=== PATIENT | female | born 1955 | race Caucasian/White ===

== ENCOUNTER 2017-01-15 09:14 | Day surgery (SDC) | payer MEDICARE ==
--- NOTE | ~2017-01-15 | EGD ---
EGD REPORT [facility] [address] [address] NAME: CECILIA DIEGO : [birth year] STATUS : REG [facility]#: [id number] AGE: 61 ADM/REG DATE : 01/15/17 MR#: [id number] REPORT SERV DATE: 01/15/17 DICTATED BY: YODIT BARCLAY DATE: 01/15/17 REPORT STATUS : Draft TRANSCRIBED BY: [facility] DATE: 01/15/17 Pulmonology Patient Name: Cecilia Diego Procedure Date: 01/15/2017 12:28 PM Date of : 1955 Attending MD: FELY BARCLAY MD Procedure Date No Time: 01/15/2017 Procedure: EBUS/CARL BRONCHOSCOPY Indications: ED lung nodule Providers: FELY BARCLAY MD Referring MD: JIMMY CHAVEZ Medicines: Lidocaine 2% 20 mL Complications: No immediate complications Procedure: After obtaining informed consent, the BF [id number] [id number] was introduced through the mouth, via the endotracheal tube (the patient was intubated for the procedure) and advanced to the tracheobronchial tree. The procedure was accomplished without difficulty. The patient tolerated the procedure well. Pre-Anesthesia Assessment: - ASA Grade Assessment: III - A patient with severe systemic disease. - A History and Physical has been performed. Patient meds and allergies have been reviewed. The risks and benefits of the procedure and the sedation options and risks were discussed with the patient. All questions were answered and informed consent was obtained. Patient identification and proposed procedure were verified prior to the procedure by the physician and the nurse in the pre-procedure area in the procedure room. Mental Status Examination: normal. Airway Examination: normal oropharyngeal airway. Respiratory Examination: clear to auscultation. CV Examination: normal and RRR, no murmurs, no S3 or S4. ASA Grade Assessment: IV - A patient with severe systemic disease that is a constant threat to life. After reviewing the risks and benefits, the patient was deemed in satisfactory condition to undergo the procedure. The anesthesia plan was to use general anesthesia. Immediately prior to administration of medications, the patient was re-assessed for adequacy to receive sedatives. The heart rate, respiratory rate, oxygen saturations, blood pressure, adequacy of pulmonary ventilation, and response to care were monitored throughout the procedure. The physical status of the patient was re-assessed after the procedure. After obtaining informed consent, the [id number] EGD REPORT [address] [address] NAME: CECILIA DIEGO : [birth year] STATUS : REG [facility] PAT#: [id number] AGE: 61 ADM/REG DATE : 01/15/17 MR#: [id number] REPORT SERV DATE: 01/15/17 DICTATED BY: YODIT BARCLAY DATE: 01/15/17 REPORT STATUS : Draft TRANSCRIBED BY: [facility] DATE: 01/15/17 was introduced through the mouth, via the endotracheal tube (the patient was intubated for the procedure) and advanced to the tracheobronchial tree. The Bronchoscope was introduced through the mouth, via the endotracheal tube (the patient was intubated for the procedure) and advanced to the tracheobronchial tree. The procedure was accomplished without difficulty. The patient tolerated the procedure well. Findings: The endotracheal tube is in good position. The visualized portion of the trachea is of normal caliber. The cathleen is sharp. The tracheobronchial tree was examined to at least the first subsegmental level. Abnormal LMS lesion was noted and endobronchial biopsy was performed. EBUS TBNA of lymph node level 11R x 8 passes for cytology EBUS TBNA of lymph node level 7 x 4 passes for cytology EBUS TBNA of lymph node level 11L x 4 passes for cytology Using SuperDimension Edge catheter 180, peripheral probe EBUS 17s, and fluoroscopy, I performed the following biopsies: ED lung nodule transbronchial needle aspirates x 6 passes for cytology ED lung nodule transbronchial brush biopsies x 2 passes for cytology ED lung nodule transbronchial forcep biopsies x 8 passes for histopathology Bronchoalveolar lavage was performed in the left upper lobe of the lung and sent for routine cytology. 120 mL of fluid were instilled. 20 mL were returned. The return was blood-tinged and cellular. Impression: Rapid On-Site Evaluation (ODALYS): Preliminary cytology is suggestive of "ATYPICAL CELLS " (final results are pending). A small LMS endobronchial lesion was biopsied. Recommendation: - Await test results. - Chest X-ray. - Follow up with referring physician. - Follow up in clinic. Attending Participation: I personally performed the entire procedure. FELY BARCLAY MD 01/15/2017 1:02 PM This report has been signed electronically. Number of Addenda: 0 Note Initiated On: 01/15/2017 12:28 PM [address] [id number]
--- NOTE | ~2017-01-15 | CN ---
Consultation Report [facility] [address] [place]. [address] NAME: CECILIA DIEGO : [birth year] STATUS : REG [facility]#: [id number] AGE: 61 ADM/REG DATE : 01/15/17 MR#: [id number] REPORT SERV DATE: 01/16/17 DICTATED BY: MAL MAC DATE: 01/15/17 REPORT STATUS : Draft TRANSCRIBED BY: MODL DATE: 01/15/17 CONSULTATION DATE OF CONSULTATION: 01/15/[address] Sauceda and Nicolas De Los Santos, nurse practitioner. Thank you for requesting my opinion regarding evaluation and management of Ms. Cecilia Diego's mediastinal lymphadenopathy. Ms. 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 She underwent a restaging PET-CT scan on 12/25/2016 that demonstrated a focal hypermetabolic nodule and the suprahilar lesion of the left chest measuring 1.8 cm and with a maximum SUV of 3.3. She had received prior radiation to the left lung and hilar area by Dr. Griffin in 2004. She underwent chemotherapy at that time by Dr. Rivera. PET-CT scan post treatment did not show any uptake in this area. Because of these new findings, she was sent to Dr. Sauceda. Dr. Sauceda evaluated the PET-CT scan and requested EBUS and navigation bronchoscopy, which is reasonable given the PET-CT findings. The patient states that she has typical exertional shortness of breath, well localized to the chest, nonradiating with no significant alleviating or exacerbating factors. REVIEW OF SYSTEMS: A detailed 14-point review of systems was completed. Pertinent positives and negatives are listed above. PAST MEDICAL HISTORY: 1. Anemia. 2. Coronary artery disease. 3. Stage III colon cancer. The patient underwent a recent colonoscopy in [place] by Dr. Salcedo and may have reported recurrence? 4. COPD. 5. Diabetes, type 2. 6. Fibromyalgia. 7. Hepatic steatosis. 8. History of tobacco abuse, quit smoking in 2012. 9. Hypertension. 10.Hyperlipidemia. 11.Non-small cell lung cancer, stage IV. 12.Rheumatoid arthritis. 13.Rectal bleeding. 14.Prior cardiac stents. Consultation Report [place] [address] [place]. [address] NAME: CECILIA DIEGO : [birth year] STATUS : REG [facility] PAT#: [id number] AGE: 61 ADM/REG DATE : 01/15/17 MR#: [id number] REPORT SERV DATE: 01/16/17 DICTATED BY: MAL MAC DATE: 01/15/17 REPORT STATUS : Draft TRANSCRIBED BY: FILOMENA DATE: 01/15/17 FAMILY HISTORY: COPD, neck cancer, fibromyalgia, arthritis, cardiovascular disease, COPD. SOCIAL HISTORY: The patient smoked 40 cigarettes per day for many years and quit in 2012. She had a history of alcohol use, but no current use. She quit drinking in 2015. She denies any significant illicit drug abuse. ALLERGIES: CLOPIDOGREL, LATEX. LATEX ALLERGY IS RASH. HOME MEDICATIONS: Reviewed and located in the paper chart. The patient's Effient has been held. PHYSICAL EXAMINATION: VITAL SIGNS: Reviewed and located in the paper chart. GENERAL: In acute distress. Able to communicate in full paragraphs at the time. HEENT: Normocephalic and atraumatic. Pupils are equal, round, and reactive to light and accommodation. Posterior oropharynx is clear. NECK: No JVD. No LAD. Trachea midline. CARDIOVASCULAR: Regular rate and rhythm. S1 and S2 present. LUNGS: Clear to auscultation bilaterally. ABDOMEN: Nontender, nondistended. Soft. Positive bowel sounds. EXTREMITIES: No clubbing, cyanosis, or edema. SKIN: No new rashes, lesions, or ulcers. PSYCHIATRIC: Alert and oriented x3. Appropriate mood and affect. Appropriate insight and judgment. NEUROLOGIC: 5/5 strength in upper and lower extremities. Cranial nerves 2 through 12 intact. Gait not tested. DTRs not performed. IMAGING PROCEDURE: 1. PET-CT scan performed at [facility], new focal hypermetabolic nodular density in the suprahilar lesion of the left chest in this patient, may represent recurrent tumor. 2. Radiation pneumonitis changes in the left chest and left hilar region, similar appearance radiation pneumonitis changes in the previous exam. 3. Remaining lung neff and mediastinum has been PET negative. 4. Physiologic inflammation and changes in the posterior nasopharynx and posterior oropharyngeal soft tissues less prominent than on previous exam. 5. PET negative, abdomen and pelvis. 6. Adrenal glands remain PET negative. 7. Probable physiologic bowel activity. 8. Physiologic changes as discussed. ASSESSMENT AND PLAN: Ms. Cecilia Diego is an extremely pleasant 61-year-old female with a significant past medical history of stage IV squamous cell lung cancer and colon cancer, who recently underwent a colonoscopy by Dr. Salcedo, and may have recurrence. The patient had Consultation Report [address] [address] NAME: CECILIA DIEGO : [birth year] STATUS : REG [facility] [place] PAT#: [id number] AGE: 61 ADM/REG DATE : 01/15/17 MR#: [id number] REPORT SERV DATE: 01/16/17 DICTATED BY: MAL MAC DATE: 01/15/17 REPORT STATUS : Draft TRANSCRIBED BY: MODL DATE: 01/15/17 a staging PET-CT scan that demonstrated new focal hypermetabolic nodular density in the suprahilar region of the left chest, which may represent recurrent tumor. The patient has been referred by Dr. Sauceda and Nicolas De Los Santos for evaluation for EBUS and navigation bronchoscopy. The clinical and radiographic presentation is most consistent with either radiation or inflammatory changes or recurrence of lung primary or less likely metastatic disease from colon cancer. We discussed in detail potential alternative options including CT-guided needle biopsy, thoracic surgical biopsy, and EBUS and navigation bronchoscopy. The patient is aware that the procedure risks including lung collapse, respiratory failure, life-threatening bleeding, and even . RECOMMENDATIONS: A summary of my recommendations are as follows: 1. Proceed with EBUS and navigation bronchoscopy. 2. Follow up with Dr. Sauceda. Thank you for allowing me to participate in Ms. Diego's care. Sincerely, SOFY/FILOMENA Mal Mac M.D. / [id number] CC: Mal Mac M.D. Kathleen Grey
[~2017-01-15 09:14] MED LIST: ADVAIR250 INH; ASA5GR PO; COMBIVENT INH; COREG25 PO; EFFIENT10 PO; FESO4 PO; FOLIC PO; K-TABS10 MEQ PO; KOMBIGLYZE XR1 EAC2 PO; LOP50 PO; LOPID6 PO; LOTE10 PO; MEVACOR40 MG PO; NEUR600 PO; NOR10 PO; ONGLYZA5 MG PO; PROTONIX PO; TICLID 250 MG250 MG PO; ULTRAM50 PO; VENTOLIN HFA INH; ZETIA PO; ZOCOR20 PO; [UNRECOGNIZED DRUG - CODE] IM
[2017-01-15 09:49] LABS: BASOPHILS 0.3 %; BASOPHILS ABSOLUTE 0.02 10/3/uL (0.0-0.16); EOSINOPHILS 1.7 %; IMMATURE GRANULOCYTES 0.2 %; IMMATURE GRANULOCYTES ABSOLUTE 0.01 10/3/uL (0.0-0.11); LYMPHOCYTES 29.2 %; LYMPHOCYTES ABSOLUTE 1.67 10/3/uL (0.67-4.30); MEAN PLATELET VOLUME 8.8 fL (9.2-13.0); MONOCYTES 6.6 %; MONOCYTES ABSOLUTE 0.38 10/3/uL (0.21-1.20); NEUTROPHILS ABSOLUTE 3.54 10/3/uL (2.02-8.40); WHITE BLOOD CELLS 5.7 10/3/uL (4.5-10.5)
[2017-01-15 09:51] LABS: HEMATOCRIT 36.6 % (36.0-48.0); HEMOGLOBIN 12.5 g/dL (12.0-16.0); MANUAL DIFF NO %; MEAN CORPUS HGB CONC 34.2 g/dL (32.0-36.0); MEAN CORPUSCULAR HEMOGLOB 33.7 pg (26.0-34.0); MEAN CORPUSCULAR VOLUME 98.7 fL (80-100); PLATELET COUNT 180 10/3/uL (150-400); RBC DISTRIBUTION WIDTH 13.1 % (12.0-16.0); RED CELL COUNT 3.71 10/6/uL (4.0-5.6)
[2017-01-15 09:56] LABS: INTERNATIONAL NORMAL RATI 1.3 UNITS (-); PARTIAL THROMBO TIME 30.2 SEC (22.5-37.2); PROTIME (NOT ORD) 16.5 SEC (12.0-14.5)
[2017-01-15 10:01] LABS: BUN (BLOOD UREA NITROGEN) 12 MG/DL (6-23); CHLORIDE, SERUM 104 MMOL/L (96-112); CREATININE 0.82 MG/DL (0.55-1.02); GFR AFRICAN AMERICAN 91 ML/MIN (>=60); GFR NON AFRICAN AMERICAN 78 ML/MIN (>=60); GLUCOSE, SERUM 116 MG/DL (60-99); SODIUM, SERUM 141 MMOL/L (135-148)
[2017-01-15 10:02] LABS: CALCIUM, SERUM 9.2 MG/DL (8.5-10.4); CO2 (CARBON DIOXIDE) 29 MMOL/L (24-34); POTASSIUM, SERUM 3.6 MMOL/L (3.5-5.3)
[2017-01-15 17:47] LABS: BD FL LYMPH (NOT ORD) 2 %; BF BASO (NOT OF) 0 %; BF LARGE MONONUCLEAR 93 %; BODY FLUID EOS (NOT ORD) 0 %; BODY FLUID SEG (NOT ORD) 5 %
[2017-01-15 17:51] LABS: BF TOTAL CELL CT (NOT ORD 57 /MM3; BODY FLUID RBC (NOT ORD) < 10 /MM3
[2017-01-16 11:08] LABS: BD FL SOURCE (NOT ORD) LUL BAL
== END 2017-01-15 23:59 | disposition home or self-care (01) ==
LOC: DMU 09:14
PROVIDERS: Internal Medicine
PROC: 0B9G8ZX Drainage of Left Upper Lung Lobe, Via Natural or Artificial Opening Endoscopic, Diagnostic (ICD-10-PCS; principal; 2017-01-15 10:00)
PROC: 0BB78ZX Excision of Left Main Bronchus, Via Natural or Artificial Opening Endoscopic, Diagnostic (ICD-10-PCS; 2017-01-15 10:00)
PROC: 0BBG8ZX Excision of Left Upper Lung Lobe, Via Natural or Artificial Opening Endoscopic, Diagnostic (ICD-10-PCS; 2017-01-15 10:00)
PROC: 07B74ZX Excision of Thorax Lymphatic, Percutaneous Endoscopic Approach, Diagnostic (ICD-10-PCS; 2017-01-15 10:00)
PROC: 0BBG8ZX Excision of Left Upper Lung Lobe, Via Natural or Artificial Opening Endoscopic, Diagnostic (ICD-10-PCS; 2017-01-15 10:00)
DX: R91.1 Solitary pulmonary nodule (principal); I10 Essential (primary) hypertension; J45.909 Unspecified asthma, uncomplicated; J44.9 Chronic obstructive pulmonary disease, unspecified; M79.7 Fibromyalgia; E11.9 Type 2 diabetes mellitus without complications; D64.9 Anemia, unspecified; E78.5 Hyperlipidemia, unspecified; I25.10 Atherosclerotic heart disease of native coronary artery without angina pectoris; M06.9 Rheumatoid arthritis, unspecified; E78.00 Pure hypercholesterolemia, unspecified; Z79.899 Other long term (current) drug therapy; Z87.891 Personal history of nicotine dependence; Z82.5 Family history of asthma and other chronic lower respiratory diseases; Z82.61 Family history of arthritis; Z82.49 Family history of ischemic heart disease and other diseases of the circulatory system; Z91.040 Latex allergy status; Z88.8 Allergy status to other drugs, medicaments and biological substances; Z98.51 Tubal ligation status; Z98.890 Other specified postprocedural states
CPT/HCPCS: 71010; 80048; 85025; 85610; 85730; 87015; 87070; 87102; 87116; 87205; 88112; 88172; 88173; 88177; 88305; 88333; 89051; 93005; A9270-GY; C1725; J1200; J2250; J2710; J3010